=== PATIENT | male | born 1965 | race Caucasian/White ===

== ENCOUNTER 2019-11-09 09:10 | Emergency (ER) | payer MEDICAID, OTHER ==
[2019-11-09] MEDS ORDERED: ONDANSETRON 4MG ODT PO ONE (10:30)
[2019-11-09] MEDS ORDERED: MORPHINE SULFATE 10 MG/ML CPJ IM ONE (10:30)
[2019-11-09 12:04] VITALS: BP 140/83
== END 2019-11-09 13:32 | disposition home or self-care (01) ==
LOC: ER 10:05
DX: G89.28 Other chronic postprocedural pain (principal); T40.2X5A Adverse effect of other opioids, initial encounter; F11.20 Opioid dependence, uncomplicated; I10 Essential (primary) hypertension; Y92.018 Other place in single-family (private) house as the place of occurrence of the external cause; G82.20 Paraplegia, unspecified; Z99.3 Dependence on wheelchair
CPT/HCPCS: 73502; 96372; 99283; J2270; Q0162